=== PATIENT | male | born 1985 | race Caucasian/White ===

== ENCOUNTER 2016-07-06 14:50 | Emergency (ER) | payer MEDICAID, OTHER ==
[2016-07-06 14:57] VITALS: TEMP 98.1
[2016-07-06] MEDS ORDERED: NS 1,000 ML IV ONE ×2 (14:59→15:33)
[2016-07-06] MEDS ORDERED: LORazepam 2 MG/ML INJ IVP ONE ×2 (15:18→16:35)
[2016-07-06 15:25] LABS: COLOR YELLOW; LEUKOCYTE ESTERASE,URINE NEGATIVE (NEGATIVE); NITRITE,URINE NEGATIVE (NEGATIVE)
[2016-07-06 15:27] LABS: % IMMATURE GRANULYOCYTES 0.5 % (0.0-1.1); ABSOLUTE IMMATURE GRANULOCYTES 0.03 10^3/uL (0.00-0.10); ADD DIFF? NO; ADD MORPH? NO; ADD SCAN? NO; ATYPICAL LYMPHOCYTE FLAG 20 (0-99); FRAGMENT RBC FLAG 0 (0-99); HEMATOCRIT 51.2 % (40.0-51.0); HEMOGLOBIN 19.1 g/dL (13.7-17.5); LEFT SHIFT FLG 0 (0-99); LIPEMIA HEMOLYSIS FLAG 90 (0-99); MEAN CELL HEMOGLOBIN 34.2 pg (27.9-34.1); MEAN CELL HEMOGLOBIN CONCENTR. 37.3 g/dL (32.4-36.7); MEAN CELL VOLUME 91.6 fL (81.5-99.8); MEAN PLATELET VOLUME 9.7 fL (8.7-11.7); PLATELET CLUMPS FLAG 10 (0-99); PLATELET COUNT 238 10^3/uL (150-400); RED BLOOD CELL COUNT 5.59 10^6/uL (4.40-6.38); RED CELL DISTRIBUTION WIDTH 11.7 % (11.5-15.2)
[2016-07-06 15:35] LABS: MUCUS TRACE /lpf (NONE-1+); RBC,URINE 15-25 /hpf (0-3)
[2016-07-06 15:38] LABS: WBC,URINE 0-1 /hpf (0-3)
[2016-07-06 15:57] LABS: ALANINE AMINOTRANSFERASE 107 IU/L (21-72); ALBUMIN 5.1 g/dL (3.5-5.0); ALKALINE PHOSPHATASE 173 IU/L (38-126); ANION GAP 17 mEq/L (8-16); ASPARTATE AMINOTRANSFERASE 77 IU/L (17-59); BILIRUBIN,TOTAL 2.1 mg/dL (0.1-1.4); BILIRUBIN-CONJUGATED 0.7 mg/dL (0.0-0.5); BILIRUBIN-UNCONJUGATED 1.4 mg/dL (0.0-1.1); CALCIUM 10.3 mg/dL (8.5-10.4); CARBON DIOXIDE 25 mEq/l (22-31); CHLORIDE 98 mEq/L (97-110); CREATININE 0.9 mg/dL (0.7-1.3); GLOMERULAR FILTRATION RATE > 60; GLUCOSE 94 mg/dL (70-100); POTASSIUM 3.7 mEq/L (3.5-5.2); SODIUM 140 mEq/L (134-144); TOTAL PROTEIN 9.2 g/dL (6.3-8.2)
[2016-07-06 16:22] VITALS: RESP 16
--- NOTE | 2016-07-06 16:33 | EDPHY ---
H & P Stated Complaint: r abd pain/etoh this weekend/hx pancreatitis Source: Patient Exam Limitations: No limitations - Personal History Current Tetanus/Diphtheria Vaccine: Yes - Medical/Surgical History Hx Asthma: No Hx Chronic Respiratory Disease: No Hx Diabetes: No Hx Cardiac Disease: No Hx Renal Disease: No Hx Cirrhosis: No Hx Alcoholism: Yes Hx HIV/AIDS: No Hx Splenectomy or Spleen Trauma: No Other PMH: PMH: anual fissure, sepsis, astma as a child. PSH:tonsillectomy, l groin hernia repair/pancreatitis - Social History Smoking Status: Never smoked Time Seen by Provider: 07/06/16 14:58 HPI/ROS: CHIEF COMPLAINT: abdominal pain HISTORY OF PRESENT ILLNESS: 30-year-old male with history of alcoholic pancreatitis presents with epigastric and right upper quadrant abdominal pain that radiates to his back. Patient reports he drink 2 nights ago, yesterday he developed a fullness in his abdomen that feels similar to his previous pancreatitis, last night this turned into a pain. Patient denies nausea or vomiting. He reports he has not had anything to eat since he remembers being NPO when he was admitted last year for pancreatitis. Patient reports a history of alcohol withdrawals, he states no history of seizures and no alcohol withdrawals recently as he has cut down significantly on his alcohol consumption. Patient denies fevers or chills, no bloody or dark tarry stools. REVIEW OF SYSTEMS: A comprehensive 10 point review of systems is otherwise negative aside from elements mentioned in the history of present illness. (Caterina Ivory) Constitutional: Initial Vital Signs Temperature (C) 36.7 C 07/06/16 14:54 Heart Rate 114 H 07/06/16 14:54 Respiratory Rate 22 H 07/06/16 14:54 Blood Pressure 207/139 H 07/06/16 14:54 O2 Sat (%) 97 07/06/16 14:54 O2 Delivery Mode Room Air Allergies/Adverse Reactions: midazolam HCl [From Versed] Allergy (Intermediate, Verified 07/06/16 14:53) rash, hallucinations Home Medications: Medication Instructions Recorded Hydrochlorothiazide 50 mg PO DAILY #30 tablet 07/06/16 oxyCODONE/APAP 5/325 [Percocet 1 - 2 tab PO Q6H PRN #12 tab 07/06/16 5/325] Medical Decision Making ED Course/Re-evaluation: IV established, CBC, chemistry panel, lipase, LFTs and right upper quadrant ultrasound ordered. Patient is given 2 L of normal saline and 2 mg of IV lorazepam has been ordered. CBC shows a hemoconcentration with a hemoglobin and hematocrit of 19.1 and 51.2. Chemistry panel shows a total bilirubin of 2.1 up from 1.4 on August 23 , AST of 77 compared to 128, ALT 107 compared to 124, alk-phos 173 compared to 98. Lipase today is 882 compared to 9711 on 08/24/15. 5pm-patient is hypertensive at 182/136. Reviewing his records from he was hospitalized a year ago he also was hypertensive. I discussed with the patient his elevated LFTs and elevated blood pressure. He does not have a primary care doctor. He reports his pain is controlled and he would like to be discharged home instead of admitted to the hospital. I have asked the caser to set him up an appointment at [facility] for follow-up. He will be discharged with a prescription for Percocet, he is to be clear liquids only and is to return to the emergency department for worsening symptoms. Patient and mother are comfortable with this plan. Patient was given his 1st dose of 50 mg of hydrochlorothiazide in the emergency department. He was given a 30 day prescription for this. I discussed this case with my supervising physician Dr. Dale. (Caterina Ivory) Other Provider: I did evaluate this patient independently. His abdominal pain is resolved. He has no tenderness on exam. He is eager to go home and declines admission although it was offered to him. We discussed his elevated blood pressure and will start him on an lobe dose antihypertensive until he can follow up with his primary care doctor. He and his family agree with this plan. They declined further workup or testing. He understands liquid diet and has done at home in the past with success. (Mingo Dale) - Data Points Laboratory Results: Laboratory Results 07/06/16 15:05 07/06/16 15:05 Medications Given: Discontinued Medications Hydrochlorothiazide (Hydrochlorothiazide) 50 mg PO DAILY JORDIN Stop: 01/02/17 17:29 Last Admin: 07/06/16 18:12 Dose: 50 mg Sodium Chloride (Ns) 1,000 mls @ 0 mls/hr IV ONCE ONE PRN Reason: Wide Open Stop: 07/06/16 15:00 Last Admin: 07/06/16 15:09 Dose: 1,000 mls Sodium Chloride (Ns) 1,000 mls @ 0 mls/hr IV ONCE ONE PRN Reason: Wide Open Stop: 07/06/16 15:34 Last Admin: 07/06/16 15:43 Dose: 1,000 mls Lorazepam (Ativan Injection) 1 mg IVP EDNOW ONE Stop: 07/06/16 15:19 Last Admin: 07/06/16 15:43 Dose: 1 mg Lorazepam (Ativan Injection) 1 mg IVP EDNOW ONE Stop: 07/06/16 16:36 Last Admin: 07/06/16 16:42 Dose: 1 mg Departure - Departure Disposition: Home, Routine, Self-Care Clinical Impression: Alcohol abuse, Elevated blood-pressure reading without diagnosis of hypertension Pancreatitis, acute Qualifiers: Pancreatitis type: alcohol induced Acute pancreatitis complication: unspecified Qualified Code(s): K85.20 - Alcohol induced acute pancreatitis without necrosis or infection Condition: Good Instructions: Pancreatitis (ED), Abuse of Alcohol (ED), Hypertension (ED) Additional Instructions: Clear liquids only, take Percocet as needed for pain. Follow up with [facility] as set up with the caser. You have an appointment on 07/09/16 at 11:40a.m., with a check-in time at 11:10a.m. This is at [facility] at [address] [place] [address]. Ask about their alcohol treatment program with [facility]. Return to the emergency department for worsening symptoms, new symptoms or concerns. Referrals: [facility] [Outside] - As per Instructions Prescriptions: Hydrochlorothiazide 50 mg PO DAILY #30 tablet oxyCODONE/APAP 5/325 [Percocet 5/325] 1 - 2 tab PO Q6H PRN #12 tab PRN Reason: Pain, Severe
[2016-07-06] MEDS ORDERED: HYDROCHLOROTHIAZIDE 50 MG TAB PO SCH (17:30)
[2016-07-06 18:13] VITALS: BP 207/138; O2SAT 94
[2016-07-07 15:26] VITALS: PULSE 99
== END 2016-07-06 18:14 | disposition home or self-care (01) ==
DX: K85.20 Alcohol induced acute pancreatitis without necrosis or infection (principal); R03.0 Elevated blood-pressure reading, without diagnosis of hypertension
CPT/HCPCS: 96374